=== PATIENT | male | born 1980 | race Caucasian/White ===

== ENCOUNTER 2018-12-10 20:19 | Emergency (ER) | payer SELFPAY ==
[2018-12-10] MEDS ORDERED: Ibuprofen TAB* 600 MG PO ONE (21:09)
[2018-12-10] MEDS ORDERED: HYDROcodone/ACETAMIN 5-325 MG* 1 TAB PO ONE (23:03)
--- NOTE | 2018-12-10 23:28 | ED ---
Upper Extremity Pain - HPI Summary HPI Summary: Patient complains of right wrist pain status post mechanical fall while ice skating. Denies any other symptoms, injury or pain. - History of Current Complaint Chief Complaint: EDExtremityUpper Stated Complaint: INJURY TO RT WRIST Time Seen by Provider: 12/10/18 21:06 Hx Obtained From: Patient Mechanism Of Injury: Fall From A Standing Position Onset/Duration: Started Hours Ago Timing: Constant Severity Initially: Moderate Severity Currently: Moderate Pain Location: Wrist Character: Aching, Throbbing Aggravating Factor(s): Movement, Flexion, Extension Alleviating Factor(s): Rest Associated Signs & Symptoms: Positive: Swelling - Allergies/Home Medications Allergies/Adverse Reactions: Allergies Allergy/AdvReac Type Severity Reaction Status Date / Time No Known Allergies Allergy Verified 12/10/18 20:23 PMH/Surg Hx/FS Hx/Imm Hx Endocrine/Hematology History: Denies: Hx Anticoagulant Therapy Cardiovascular History: Denies: Hx Cardiac Arrest History: Denies: Hx Dialysis Sensory History: Denies: Hx Eye Prosthesis Neurological History: Denies: Hx Developmental Delay Psychiatric History: Denies: Hx Autism Infectious Disease History: No Infectious Disease History: Denies: Traveled Outside the [place] in Last 30 Days - Social History Occupation: Employed Full-time Alcohol Use: None Substance Use Type: Reports: None Smoking Status (MU): Never Smoked Tobacco Review of Systems Constitutional: Negative Eyes: Negative ENT: Negative Cardiovascular: Negative Respiratory: Negative Gastrointestinal: Negative Genitourinary: Negative Musculoskeletal: Other Skin: Negative Neurological: Negative Psychological: Normal All Other Systems Reviewed And Are Negative: Yes Physical Exam - Summary Physical Exam Summary: Swelling and apparent deformity to right wrist. No erythema, ecchymosis, open wound. PMS intact distally. Deformity to medial right wrist. Snuffbox tenderness. Triage Information Reviewed: Yes Vital Signs On Initial Exam: Initial Vitals Temp Pulse Resp BP Pulse Ox 96.4 F 105 18 151/106 96 12/10/18 20:22 12/10/18 20:22 12/10/18 20:22 12/10/18 20:22 12/10/18 20:22 Vital Signs Reviewed: Yes Appearance: Positive: Well-Appearing Skin: Positive: Warm Head/Face: Positive: Normal Head/Face Inspection Eyes: Positive: Normal Neck: Positive: Supple Respiratory/Lung Sounds: Positive: Clear to Auscultation Cardiovascular: Positive: Normal Abdomen Description: Positive: Nontender Musculoskeletal: Positive: Normal Neurological: Positive: Normal Psychiatric: Positive: Normal AVPU Assessment: Alert - [place]ball Coma Scale Best Eye Response: 4 - Spontaneous Best Motor Response: 6 - Obeys Commands Best Verbal Response: 5 - Oriented Coma Scale Total: 15 Diagnostics - Vital Signs Vital Signs Temp Pulse Resp BP Pulse Ox 12/10/18 20:22 96.4 F 105 18 151/106 96 - Laboratory Lab Statement: Any lab studies that have been ordered have been reviewed, and results considered in the medical decision making process. Course/Dx - Course Course Of Treatment: Patient complains of right wrist pain status post mechanical fall while ice skating. Denies any other symptoms, injury or pain. Physical exam:Swelling and apparent deformity to right wrist. No erythema, ecchymosis, open wound. PMS intact distally. Deformity to medial right wrist. Snuffbox tenderness. Vital signs within normal limits. X-ray positive for distal radial fracture. Thumb spica splint placed. Follow-up with orthopedics for further evaluation of radial fracture and possible scaphoid fracture. - Diagnoses Provider Diagnoses: Distal radius fracture Discharge - Sign-Out/Discharge Documenting (check all that apply): Patient Departure - Discharge Plan Condition: Stable Disposition: HOME Prescriptions: HYDROcodone/ACETAMIN 5-325 MG* [[place] 5-325 TAB*] 1 tab PO TID 2 Days #6 tab MDD 3 tabs Patient Education Materials: Wrist Fracture in Adults (ED) Referrals: No Primary Care Phys,NOPCP [Primary Care Provider] - Radhika Watt MD [Medical Doctor] - Additional Instructions: Follow-up with orthopedics seen on Wednesday morning. Wear splint until cleared by orthopedics. Return to the ED for any new or worsening symptoms - Billing Disposition and Condition Condition: STABLE Disposition: Home
[2018-12-10 23:48] VITALS: BP 139/85
== END 2018-12-10 23:47 | disposition home or self-care (01) ==
LOC: ED 20:19
DX: S52.501A Unspecified fracture of the lower end of right radius, initial encounter for closed fracture (principal); V00.211A Fall from ice-skates, initial encounter; Y93.21 Activity, ice skating; Y92.9 Unspecified place or not applicable
CPT/HCPCS: 99282; A9270-GY